=== PATIENT | female | born 1965 | race African-American/Black ===

== ENCOUNTER 2017-11-14 10:07 | Emergency (ER) | payer MEDICAID ==
[~2017-11-14] VITALS: Ht 160 cm; Wt 72.0 kg
[2017-11-14] MEDS ORDERED: SODIUM CHLORIDE 0.9% 1,000 ML IV ONE (10:28)
[2017-11-14] MEDS ORDERED: IBUPROFEN 600MG TABLET PO STA (10:28)
[2017-11-14 10:55] LABS: BASOPHILS % 0.5 % (0.0-2.0); EOSINOPHILS % 0.1 % (0.0-5.0); HEMATOCRIT. 30.9 % (36.0-48.0); HEMOGLOBIN. 10.4 g/dL (12.0-16.0); LYMPHOCYTES % 17.2 % (20.0-50.0); MEAN CORPUSCULAR HEMOGLOBIN 28.8 pg (28.0-32.0); MEAN CORPUSCULAR VOLUME 85.9 fL (81.0-99.0); MEAN PLATELET VOLUME 8.9 fl (7.4-10.4); MONOCYTES % 7.4 % (2.0-8.0); NEUTROPHILS % 74.8 % (40.0-76.0); PLATELET 213 x1000/uL (130-400); RED CELL DISTRIBUTION WIDTH 20.3 % (11.6-14.6)
[2017-11-14 10:59] LABS: CHLORIDE 105 mEq/L (98-107); HCG SCREEN NEGATIVE
[2017-11-14 11:02] LABS: PROTHROMBIN TIME 10.2 sec (9.4-11.6)
[2017-11-14 11:41] VITALS: BP 133/74
== END 2017-11-14 12:07 | disposition home or self-care (01) ==
LOC: ER 12:04
DX: S52.592A Other fractures of lower end of left radius, initial encounter for closed fracture (principal); D25.9 Leiomyoma of uterus, unspecified; N93.9 Abnormal uterine and vaginal bleeding, unspecified; D64.9 Anemia, unspecified; I10 Essential (primary) hypertension; M19.90 Unspecified osteoarthritis, unspecified site; F12.10 Cannabis abuse, uncomplicated; Z98.890 Other specified postprocedural states; X58.XXXA Exposure to other specified factors, initial encounter; Y93.89 Activity, other specified; Y92.018 Other place in single-family (private) house as the place of occurrence of the external cause
CPT/HCPCS: 36415; 73110; 76830; 76856; 80053; 84484; 84550; 84703; 85025; 85610; 85651; 86140; 93005; 96360; 99285; J7030

== ENCOUNTER 2018-12-24 15:09 | Emergency (ER) | payer MEDICAID ==
[~2018-12-24] VITALS: Ht 160 cm; Wt 60.6 kg
[2018-12-24] MEDS ORDERED: KETOROLAC 60MG/2ML VIAL IM ONE (18:15)
[2018-12-24] MEDS ORDERED: CYCLOBENZAPRINE 10MG TABLET PO ONE (18:15)
[2018-12-24] MEDS ORDERED: AMLODIPINE 10MG TABLET PO ONE (18:15)
[2018-12-24] MEDS ORDERED: MORPHINE SULFATE 4 MG/ML CPJ (NOT FOR IM USE) IV STA (20:08)
[2018-12-24] MEDS ORDERED: SODIUM CHLORIDE 0.9% 1,000 ML IV ONE (20:08)
[2018-12-24] MEDS ORDERED: ONDANSETRON HCL 4MG/2ML INJ IV STA (20:08)
[2018-12-24] MEDS ORDERED: HYDRALAZINE 20MG/ML VIAL IV ONE (20:15)
[2018-12-24 20:30] LABS: BASOPHILS % 0.9 % (0.0-2.0); EOSINOPHILS % 0.6 % (0.0-5.0); HEMATOCRIT. 38.9 % (36.0-48.0); HEMOGLOBIN. 13.7 g/dL (12.0-16.0); LYMPHOCYTES % 21.6 % (20.0-50.0); MEAN CORPUSCULAR HEMOGLOBIN 32.8 pg (28.0-32.0); MEAN CORPUSCULAR VOLUME 93.2 fL (81.0-99.0); NEUTROPHILS % 70.9 % (40.0-76.0); PLATELET 222 x1000/uL (130-400); RED BLOOD CELL COUNT 4.18 mill/uL (4.2-5.4); RED CELL DISTRIBUTION WIDTH 12.6 % (11.6-14.6)
[2018-12-24 20:37] LABS: CHLORIDE 105 mEq/L (98-107)
[2018-12-24 21:27] VITALS: BP 115/70
== END 2018-12-24 22:12 | disposition home or self-care (01) ==
LOC: ER 16:10
DX: I16.0 Hypertensive urgency (principal); M54.5 Low back pain; F12.90 Cannabis use, unspecified, uncomplicated
CPT/HCPCS: 36415; 80053; 85025; 96372; 96374; 96375; 99283; J0360; J1885; J2270; J2405; J7030

== ENCOUNTER 2019-02-22 16:02 | Inpatient (IN) | payer MEDICAID ==
[~2019-02-22] VITALS: Ht 160 cm; Wt 62.1 kg
[2019-02-22] MEDS ORDERED: SODIUM CHLORIDE 0.9% 1,000 ML IV ONE (16:38)
[2019-02-22] MEDS ORDERED: MORPHINE SULFATE 4 MG/ML CPJ (NOT FOR IM USE) IV STA (16:38)
[2019-02-22] MEDS ORDERED: ONDANSETRON HCL 4MG/2ML INJ IV STA (16:38)
[2019-02-22 16:56] LABS: BASOPHILS % 0.4 % (0.0-2.0); EOSINOPHILS % 0.1 % (0.0-5.0); HEMATOCRIT. 41.5 % (36.0-48.0); HEMOGLOBIN. 14.3 g/dL (12.0-16.0); LYMPHOCYTES % 9.5 % (20.0-50.0); MEAN CORPUSCULAR HEMOGLOBIN 32.3 pg (28.0-32.0); PLATELET 223 x1000/uL (130-400); RED BLOOD CELL COUNT 4.42 mill/uL (4.2-5.4); RED CELL DISTRIBUTION WIDTH 12.6 % (11.6-14.6)
[2019-02-22 16:59] LABS: CHLORIDE 102 mEq/L (98-107)
[2019-02-22 17:00] LABS: PARTIAL THROMBOPLASTIN TIME 30.8 sec (23.4-31.0); PROTHROMBIN TIME 10.7 sec (9.6-11.0)
[2019-02-22] MEDS ORDERED: MORPHINE SULFATE 4 MG/ML CPJ (NOT FOR IM USE) IV ONE ×2 (17:15→21:15)
[2019-02-22] MEDS ORDERED: HYDRALAZINE 20MG/ML VIAL IV ONE ×2 (17:15→21:15)
[2019-02-22] MEDS ORDERED: ONDANSETRON HCL 4MG/2ML INJ IV ONE ×2 (17:15→21:15)
[2019-02-22 21:17] LABS: CLARITY URINE CLOUDY (CLEAR); COLOR URINE YELLOW (YELLOW); KETONES URINE 3+ (NEGATIVE); LEUKOCYTE ESTERASE URINE NEGATIVE (NEGATIVE); NITRITE URINE NEGATIVE (NEGATIVE); OCCULT BLOOD URINE 1+ (NEGATIVE); PROTEIN URINE 1+ (NEGATIVE); SPECIFIC GRAVITY URINE 1.022 (1.005-1.030)
[2019-02-22 22:15] VITALS: BP 168/94
[2019-02-23] VITALS (10 sets, daily range): BP systolic 114–197; BP diastolic 54–122
[2019-02-23] MEDS ORDERED: IPRATROPIUM/ALBUTEROL 0.5-3(2.5)MG/3ML NEB INH PRN
[2019-02-23] MEDS ORDERED: NA PHOS,M-B/NA PHOS,DI-BA ENEMA 118ML PR PRN
[2019-02-23] MEDS ORDERED: GUAIFENESIN 200MG/10ML SUGAR FREE UDC PO PRN
[2019-02-23] MEDS ORDERED: ACETAMINOPHEN 325MG TABLET PO PRN
[2019-02-23] MEDS ORDERED: LORAZEPAM 2MG/ML CPJ IV PRN
[2019-02-23] MEDS ORDERED: MAGNESIUM/ALUMINUM HYDROXIDE/SIMETHICONE 30ML UDC PO PRN
[2019-02-23] MEDS ORDERED: DOCUSATE SODIUM 100MG CAPSULE PO PRN
[2019-02-23] MEDS ORDERED: HYDROCODONE/ACETAMINOPHEN 10/325MG TABLET PO PRN
[2019-02-23] MEDS: ONDANSETRON HCL 4MG/2ML INJ IV PRN ×3 (00:18→18:36)
[2019-02-23] MEDS: MORPHINE SULFATE 2 MG/ML CPJ (NOT FOR IM USE) IV PRN ×5 (00:19→20:17)
[2019-02-23] MEDS ORDERED: DEXT 5%/0.45% NACL 1000ML 1,000 ML IV SCH (01:00)
[2019-02-23 02:10] LABS: CHLORIDE 104 mEq/L (98-107)
[2019-02-23] MEDS: CLONIDINE 0.1MG TABLET PO PRN ×4 (03:51→18:26)
[2019-02-23 06:14] LABS: BASOPHILS % 0.4 % (0.0-2.0); EOSINOPHILS % 0.6 % (0.0-5.0); HEMATOCRIT. 41.1 % (36.0-48.0); LYMPHOCYTES % 18.7 % (20.0-50.0); MEAN CORPUSCULAR HEMOGLOBIN 32.1 pg (28.0-32.0); MEAN CORPUSCULAR VOLUME 94.2 fL (81.0-99.0); MEAN PLATELET VOLUME 9.6 fl (7.4-10.4); MONOCYTES % 6.7 % (2.0-8.0); NEUTROPHILS % 73.6 % (40.0-76.0); PLATELET 196 x1000/uL (130-400); RED BLOOD CELL COUNT 4.36 mill/uL (4.2-5.4); RED CELL DISTRIBUTION WIDTH 12.6 % (11.6-14.6)
[2019-02-23 06:21] LABS: CHLORIDE 103 mEq/L (98-107)
[2019-02-23 06:29] LABS: LDL CHOLESTEROL 76 mg/dL (5-100)
[2019-02-23 06:31] LABS: HDL CHOLESTEROL 83 mg/dL (40-59); T4 FREE 1.09 ng/dL (0.76-1.46)
[2019-02-23] MEDS: ENOXAPARIN 40MG/0.4ML SYR SUBCUT SCH (09:00)
[2019-02-23] MEDS: DEXT 5%/0.45% NACL KCL 10MEQ/L 1,000 ML IV SCH ×2 (10:28→21:23)
[2019-02-23] MEDS ORDERED: CLONIDINE HCL 0.1MG/24HR PATCH TD NR (23:00)
[2019-02-24] VITALS (7 sets, daily range): BP systolic 164–203; BP diastolic 89–113
[2019-02-24] MEDS: MORPHINE SULFATE 2 MG/ML CPJ (NOT FOR IM USE) IV PRN ×5 (00:14→20:23)
[2019-02-24] MEDS: DEXT 5%/0.45% NACL KCL 10MEQ/L 1,000 ML IV SCH ×2 (06:42→16:09)
[2019-02-24 07:40] LABS: CHLORIDE 102 mEq/L (98-107)
[2019-02-24 07:52] LABS: BASOPHILS % 0.3 % (0.0-2.0); EOSINOPHILS % 0.3 % (0.0-5.0); HEMATOCRIT. 36.8 % (36.0-48.0); HEMOGLOBIN. 12.8 g/dL (12.0-16.0); LYMPHOCYTES % 10.4 % (20.0-50.0); MEAN CORPUSCULAR HEMOGLOBIN 32.4 pg (28.0-32.0); MEAN CORPUSCULAR VOLUME 93.3 fL (81.0-99.0); MEAN PLATELET VOLUME 9.3 fl (7.4-10.4); MONOCYTES % 5.9 % (2.0-8.0); NEUTROPHILS % 83.1 % (40.0-76.0); PLATELET 178 x1000/uL (130-400); RED BLOOD CELL COUNT 3.94 mill/uL (4.2-5.4); RED CELL DISTRIBUTION WIDTH 12.4 % (11.6-14.6)
[2019-02-24] MEDS: CLONIDINE 0.1MG TABLET PO PRN ×2 (09:37→23:49)
[2019-02-24] MEDS: ONDANSETRON HCL 4MG/2ML INJ IV PRN ×2 (12:06→20:31)
[2019-02-24] MEDS ORDERED: KCL 20MEQ/100ML PREMIX 100 ML IV NR (16:00)
[2019-02-24] MEDS: ENOXAPARIN 40MG/0.4ML SYR SUBCUT SCH (16:08)
[2019-02-25] VITALS: BP 196/103
[2019-02-25] MEDS: MORPHINE SULFATE 2 MG/ML CPJ (NOT FOR IM USE) IV PRN ×5 (00:53→21:39)
[2019-02-25 04:00] VITALS: BP 209/107
[2019-02-25] MEDS: DEXT 5%/0.45% NACL KCL 10MEQ/L 1,000 ML IV SCH ×4 (04:11→22:38)
[2019-02-25 07:43] LABS: BASOPHILS % 1.3 % (0.0-2.0); EOSINOPHILS % 1.2 % (0.0-5.0); HEMATOCRIT. 40.1 % (36.0-48.0); HEMOGLOBIN. 13.7 g/dL (12.0-16.0); LYMPHOCYTES % 22.3 % (20.0-50.0); MEAN CORPUSCULAR HEMOGLOBIN 32.3 pg (28.0-32.0); MEAN CORPUSCULAR VOLUME 94.4 fL (81.0-99.0); MEAN PLATELET VOLUME 8.9 fl (7.4-10.4); MONOCYTES % 13.5 % (2.0-8.0); NEUTROPHILS % 61.7 % (40.0-76.0); PLATELET 176 x1000/uL (130-400); RED BLOOD CELL COUNT 4.24 mill/uL (4.2-5.4); RED CELL DISTRIBUTION WIDTH 12.7 % (11.6-14.6)
[2019-02-25 07:56] LABS: CHLORIDE 102 mEq/L (98-107)
[2019-02-25 08:00] VITALS: BP 174/92
[2019-02-25] MEDS: CLONIDINE 0.1MG TABLET PO PRN ×3 (08:03→22:43)
[2019-02-25] MEDS: ENOXAPARIN 40MG/0.4ML SYR SUBCUT SCH (10:11)
[2019-02-25 12:00] VITALS: BP 173/111
[2019-02-25 16:00] VITALS: BP 189/108
[2019-02-25] MEDS: AMLODIPINE 5MG TABLET PO SCH (16:47)
[2019-02-25 20:00] VITALS: BP 200/104
[2019-02-26] MEDS: MORPHINE SULFATE 2 MG/ML CPJ (NOT FOR IM USE) IV PRN ×3 (01:50→21:05)
[2019-02-26 04:00] VITALS: BP 166/87
[2019-02-26 07:27] LABS: BASOPHILS % 1.2 % (0.0-2.0); EOSINOPHILS % 1.2 % (0.0-5.0); HEMATOCRIT. 39.2 % (36.0-48.0); HEMOGLOBIN. 13.6 g/dL (12.0-16.0); LYMPHOCYTES % 21.5 % (20.0-50.0); MEAN CORPUSCULAR HEMOGLOBIN 32.3 pg (28.0-32.0); MEAN CORPUSCULAR VOLUME 93.1 fL (81.0-99.0); MEAN PLATELET VOLUME 8.5 fl (7.4-10.4); MONOCYTES % 11.4 % (2.0-8.0); NEUTROPHILS % 64.7 % (40.0-76.0); PLATELET 169 x1000/uL (130-400); RED BLOOD CELL COUNT 4.21 mill/uL (4.2-5.4); RED CELL DISTRIBUTION WIDTH 12.4 % (11.6-14.6)
[2019-02-26 07:33] LABS: CHLORIDE 101 mEq/L (98-107)
[2019-02-26 08:00] VITALS: BP 149/91
[2019-02-26] MEDS: AMLODIPINE 5MG TABLET PO SCH (08:33)
[2019-02-26] MEDS: ENOXAPARIN 40MG/0.4ML SYR SUBCUT SCH (08:34)
[2019-02-26] MEDS: DEXT 5%/0.45% NACL KCL 10MEQ/L 1,000 ML IV SCH ×2 (08:35→22:25)
[2019-02-26 12:00] VITALS: BP 163/89
[2019-02-26] MEDS: CLONIDINE 0.1MG TABLET PO PRN (12:55)
[2019-02-26 16:00] VITALS: BP 156/95
[2019-02-26 20:00] VITALS: BP 154/89
[2019-02-27 00:48] VITALS: BP 159/82
[2019-02-27] MEDS: MORPHINE SULFATE 2 MG/ML CPJ (NOT FOR IM USE) IV PRN ×3 (01:57→10:57)
[2019-02-27 04:00] VITALS: BP 168/71
[2019-02-27] MEDS: CLONIDINE 0.1MG TABLET PO PRN (04:55)
[2019-02-27] MEDS: DEXT 5%/0.45% NACL KCL 10MEQ/L 1,000 ML IV SCH (05:00)
[2019-02-27 06:49] LABS: BASOPHILS % 0.7 % (0.0-2.0); EOSINOPHILS % 2.2 % (0.0-5.0); HEMATOCRIT. 39.2 % (36.0-48.0); HEMOGLOBIN. 13.7 g/dL (12.0-16.0); MEAN CORPUSCULAR HEMOGLOBIN 32.2 pg (28.0-32.0); MEAN CORPUSCULAR VOLUME 92.3 fL (81.0-99.0); MEAN PLATELET VOLUME 8.9 fl (7.4-10.4); MONOCYTES % 10.5 % (2.0-8.0); NEUTROPHILS % 62.6 % (40.0-76.0); PLATELET 180 x1000/uL (130-400); RED BLOOD CELL COUNT 4.24 mill/uL (4.2-5.4); RED CELL DISTRIBUTION WIDTH 12.2 % (11.6-14.6)
[2019-02-27 06:52] LABS: CHLORIDE 103 mEq/L (98-107)
[2019-02-27 08:00] VITALS: BP 149/97
[2019-02-27] MEDS ORDERED: AMLODIPINE 10MG TABLET PO SCH (09:00)
[2019-02-27] MEDS: ENOXAPARIN 40MG/0.4ML SYR SUBCUT SCH ×2 (09:00→09:09)
[2019-02-27] MEDS ORDERED: CEFTRIAXONE 1 G PREMIX 50 ML IV SCH (09:09)
[2019-02-27 11:07] VITALS: BP 144/97
[2019-02-27 12:00] VITALS: BP 149/79
== END 2019-02-27 12:45 | disposition home or self-care (01) | DRG 247 ==
LOC: ER 16:02 → EDBEDREQ 16:43 → 8WST 19:24 → EDBEDREQ 19:43 → EDBEDREQTM 19:43 → ENRESERV 21:07 → CANRESERV 21:07 → ENRESERV 21:10 → CANRESERV 21:10 → ENRESERV 21:13 → 8WST 22:24
PROVIDERS: ADMIT Internal Medicine; ATTEND Internal Medicine
PROC: 0D9670Z Drainage of Stomach with Drainage Device, Via Natural or Artificial Opening (ICD-10-PCS; principal; 2019-02-22)
DX: K56.609 Unspecified intestinal obstruction, unspecified as to partial versus complete obstruction (principal); E86.0 Dehydration; I10 Essential (primary) hypertension; N39.0 Urinary tract infection, site not specified; Z87.19 Personal history of other diseases of the digestive system; Z98.891 History of uterine scar from previous surgery
CPT/HCPCS: 36415; 71045; 74018; 74176; 80048; 80061; 83880; 84439; 84481; 84484; 93005; 96374; 96375; 99285; J0360; J0696; J1650; J2270; J2405; J3480; J7030